=== PATIENT | male | born 1955 ===

== ENCOUNTER 2021-05-01 23:57 | Emergency (ER) | payer SELFPAY ==
[2021-05-02 00:01] VITALS: BP 151/89; PULSE 60; RESP 16; TEMP 36.7; O2SAT 99
[2021-05-02 00:02] VITALS: BP 151/89; PULSE 60; RESP 16; TEMP 36.7; O2SAT 98; BMI 29.0
== END 2021-05-02 01:00 | disposition left against medical advice (07) ==
LOC: ED 05-02 01:00
DX: R69 Illness, unspecified (principal); Z53.21 Procedure and treatment not carried out due to patient leaving prior to being seen by health care provider
CPT/HCPCS: 99283